=== PATIENT | male | born 1985 ===

== ENCOUNTER 2018-03-29 08:08 | Emergency (ER) | payer OTHER ==
[2018-03-29 08:16] VITALS: BMI 25.7
[2018-03-29 08:19] VITALS: O2SAT 97
[2018-03-29] MEDS ORDERED: Tdap Vaccine 0.5 ml Vial (10-64 yrs) IM ONE ×2 (08:34→09:18)
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
[2018-03-29] MEDS ORDERED: Bacitracin 500 Units/gm Oint Foilpak UD ONE (10:08)
[2018-03-29 10:22] VITALS: BP 122/76; PULSE 88; RESP 18; TEMP 98.6
== END 2018-03-29 10:22 | disposition home or self-care (01) ==
LOC: C.ER 08:08 → EDBD 08:08 → C.ER 10:22
DX: S09.90XA Unspecified injury of head, initial encounter (principal); V29.9XXA Motorcycle rider (driver) (passenger) injured in unspecified traffic accident, initial encounter; Z23 Encounter for immunization